=== PATIENT | male | born 1950 | race Caucasian/White ===

== ENCOUNTER → 2022-01-17 11:52 | Outpatient (CLI) | payer MEDICARE, OTHER, SELFPAY ==
--- NOTE | 2022-01-17 12:05 | DI.RAD.S_ITS ---
PROCEDURE: XR SHOULDER LT MIN 2V INDICATIONS: ACUTE PAIN OF RIGHT SHOULDER TECHNIQUE: 3 views of the shoulder were acquired. COMPARISON: None. FINDINGS: Bones: No fractures or dislocations. No suspicious bony lesions. Mild degenerative joint disease. Visualized ribs appear intact. Soft tissues: No suspicious soft tissue calcifications. IMPRESSION: Mild degenerative joint disease. If clinical symptoms persist or clinical suspicion for internal derangement is high, MRI is suggested for further evaluation. Dictated by: Ida Guy M.D. on 01/17/2022 at 11:37 Approved by: Ida Guy M.D. on 01/17/2022 at 11:39
== END ==
PROVIDERS: PCP Student in an Organized Health Care Education/Training Program; Referring Provider Student in an Organized Health Care Education/Training Program; Visit Provider Student in an Organized Health Care Education/Training Program
DX: M19.011 Primary osteoarthritis, right shoulder (principal); M25.511 Pain in right shoulder
CPT/HCPCS: 73030

== ENCOUNTER → 2024-06-14 13:09 | Outpatient (CLI) | payer MEDICARE, OTHER, SELFPAY ==
--- NOTE | 2024-06-14 13:12 | DI.CT.S_ITS ---
PROCEDURE: CT CHEST WO CON INDICATIONS: ASBESTOS EXPOSURE / BASELINE CT TECHNIQUE: Noncontrast 5 mm thick sections acquired from the pulmonary apices to the posterior costophrenic angles. 1 mm lung window, 5 mm thick coronal and sagittal and 7 mm axial MIP reformats were then acquired. For radiation dose reduction, the following was used: automated exposure control, adjustment of mA and/or kV according to patient size. COMPARISON: None. FINDINGS: There are several bilateral pulmonary nodules the largest in the right upper lobe posteriorly (axial series 3, image 91) measures 5 mm diameter with Hounsfield unit approximately 71 may represent noncalcified granuloma postinflammatory or other nodule too small to characterize. Rarely metastatic nodule could have this appearance. An adjacent 4 mm diameter nodule is noted in the right upper lobe posteriorly (axial series 3, image 102). Several 3 mm nodules are noted in the bilateral lung apices which are more likely related to mild pleural-parenchymal scarring. Mild nonspecific diffuse pleural thickening is noted posteriorly in the right upper lobe greater than left upper lobe. Given the history of prior asbestos exposure bilateral apical pleural plaques without significant calcifications should be considered. Rarely early findings of mesothelioma could be considered. Follow-up suggested. Mild calcifications of the coronary arteries. Mild degenerative changes of the thoracic spine without CT evidence of fracture or subluxation. No pneumothorax, no pleural effusion, no pericardial effusion, no abnormal bronchial thickening, no focal consolidation. Lower Neck: No enlarged lymph nodes. Thyroid: No thyroid nodules which require sonographic follow up. Axillae: No enlarged lymph nodes. Chest Wall: Unremarkable. Heart: Heart size is normal. Thoracic Vessels: The aorta and pulmonary arteries demonstrate normal size. Mediastinum and Connie: No enlarged lymph nodes. Esophagus: No wall thickening. No hiatal hernia. Upper Abdomen: Visualized upper abdomen solid organs and bowel loops appear normal. Image quality: Diagnostic. IMPRESSION: Several bilateral pulmonary nodules as discussed above. Mild nonspecific diffuse pleural thickening in the lung apices and upper lobes as discussed above. Given the history of prior asbestos exposure bilateral apical pleural plaques should be considered. Rarely early findings of mesothelioma could be considered. Follow-up suggested. Mild calcifications of the coronary arteries. Dictated by: Jassi Iverson M.D. on 06/14/2024 at 13:45 Approved by: Jassi Iverson M.D. on 06/14/2024 at 14:19
== END ==
PROVIDERS: PCP Student in an Organized Health Care Education/Training Program; Referring Provider Family Medicine; Visit Provider Family Medicine
DX: I25.10 Atherosclerotic heart disease of native coronary artery without angina pectoris (principal); R91.8 Other nonspecific abnormal finding of lung field; M47.814 Spondylosis without myelopathy or radiculopathy, thoracic region; Z77.090 Contact with and (suspected) exposure to asbestos
CPT/HCPCS: 71250